=== PATIENT | male | born 1975 | race Caucasian/White ===

== ENCOUNTER → 2020-10-23 | Outpatient (CLI) | payer OTHER ==
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
== END ==
LOC: RAD 08:10
PROVIDERS: ATTEND Physician Assistant
DX: M25.512 Pain in left shoulder (principal)
CPT/HCPCS: 73030

== ENCOUNTER 2020-12-05 08:53 | Emergency (ER) | payer OTHER ==
[~2020-12-05] VITALS: Ht 180.3 cm; Wt 111.0 kg
[2020-12-05] MEDS ORDERED: OFLO5DRO7 AS (10:09)
--- NOTE | 2020-12-05 10:10 | PHYS DOC ---
Past History Past Surgical History: No Surgical History Alcohol Use: None Adult General Chief Complaint Chief Complaint: EARACHE/EAR PAIN HPI HPI Patient is a 45-year-old male presenting for left ear problems. Reports symptom onset was 4 days prior without any known inciting event, trauma, ingestion or major change in health. Admits he is an insulin-dependent type 2 diabetic, has history of otitis externa in the past without any concerning complications and always responded to antibiotic drops. Presents today concerned he has repeat infection. Reports getting out of the shower without any recent swimming activities or other exposures reporting dull left ear aching with pain manipulating external portion of ear. Has had waxing and waning green/yellow drainage from ear canal ever since symptom onset. He has tried Debrox and other wax/ear medications [id number] without any relief in symptoms prompting him to come in for evaluation today Review of Systems Review of Systems Fourteen body systems of review of systems have been reviewed. See HPI for pertinent positives and negative responses, other gregorio all other systems are negative, non-pertinent or non-contributory Allergies Allergies Allergies Coded Allergies Type Severity Reaction Last Updated Verified No Known Drug Allergies 12/05/20 No Physical Exam Physical Exam Constitutional: Well developed, well nourished, no acute distress, non-toxic appearance. HENT: Normocephalic, atraumatic, right ear normal, left external ear painful with manipulation with drainage present on inside of ear canal with TM intact, oropharynx moist, no oral exudates, nose normal. No jaw and/or pre- /postauricular crepitus, pain or other concerning findings based on visual and/or palpation Eyes: PERRLA, EOMI, conjunctiva normal, no discharge. Neck: Normal range of motion, no tenderness, supple, no stridor. Cardiovascular: Heart rate regular per monitor Lungs & Thorax: No respiratory distress or accessory muscle use, bilateral chest rise Abdomen: Abdomen soft, non-tender, bowel sounds present in all quadrants, no guarding or rebound, nonacute abdomen. Skin: Warm, dry, no erythema, no rash. Back: No tenderness, no CVA tenderness. Extremities: No tenderness, no cyanosis, no clubbing, ROM intact, no edema. Neurologic: Alert and oriented X 3, grossly normal motor & sensory function, no focal deficits noted. Psychologic: Affect normal, judgement normal, mood normal. Current Patient Data Vital Signs Vital Signs Date Time Temp Pulse Resp B/P (MAP) Pulse Ox O2 Delivery O2 Flow Rate FiO2 12/05/20 09:00 97.7 54 18 139/82 99 Room Air EKG EKG [] Radiology/Procedures Radiology/Procedures [] Heart Score C/O Chest Pain: No Risk Factors: Risk Factors: DM, Current or recent (<one month) smoker, HTN, HLP, family history of CAD, obesity. Risk Scores: Risk Factors: DM, Current or recent (<one month) smoker, HTN, HLP, family history of CAD, obesity. Course & Med Decision Making Course & Med Decision Making ABCs unremarkable. I disclosed entirety of ER findings and discussed most likely diagnosis of left otitis externa. TM intact, I discussed need for antibiotic drops. I stressed need for close outpatient follow-up to review today's ER vis it. Strict return precautions were also discussed at length with good understanding by patient. Patient voiced understanding and agreement with the plan. Patient knows to come back for repeat evaluation if concerning signs or symptoms present prior to outpatient follow-up. Hemodynamically stable, ambulatory and well-appearing at time of disposition. Dragon Disclaimer Dragon Disclaimer This electronic medical record was generated, in whole or in part, using a voice recognition dictation system. Departure Departure: Impression: Primary Impression: Otitis externa of left ear Disposition: HOME / SELF CARE / HOMELESS Condition: STABLE Referrals: CHRISTINA MCNAIR (PCP) Patient Instructions: Otitis Externa Additional Instructions: You were evaluated in the [facility] emergency Department today for ear pain. Your physical exam suggests that you have an ear infection. Please take the antibiotics in full as directed. Please use ear marah at night for the first three nights. It really helps with comfort and making sure the ear canal stays exposed to the antibiotic for a long time. Be aware it takes 24-36 hours to start feeling better, and often takes a week to clear up. Please follow up with your primary care physician as needed. If you do not have a primary doctor, you can call your insurance company to find one. If you do not have insurance, you can go to the finance/registration department for more assistance. Scripts Ofloxacin (OFLOXACIN) 5 Ml Drops 5 DROP BID for otitis externa for 7 Days, #10 ML 0 Refills Prov: KHALIDA TRIVEDI DO 12/05/20 KHALIDA TRIVEDI DO Dec 05, 2020 10:10
[2020-12-05 10:15] VITALS: BP 130/73
== END 2020-12-05 10:15 | disposition home or self-care (01) ==
LOC: ER 08:53
DX: H60.92 Unspecified otitis externa, left ear (principal)
CPT/HCPCS: 99283

== ENCOUNTER 2021-01-20 13:57 | Emergency (ER) | payer OTHER ==
[~2021-01-20] VITALS: Ht 180.3 cm; Wt 111.0 kg
[2021-01-20 13:57] VITALS: BP 146/83
[~2021-01-20 13:57] MED LIST: OFLO5DRO7 AS
--- NOTE | 2021-01-20 14:24 | PHYS DOC ---
Past History Past Surgical History: No Surgical History Alcohol Use: None Adult General Chief Complaint Chief Complaint: UPPER EXTREMITY SWELLING HPI HPI Patient is a 45-year-old male presenting from local [facility] for left upper extremity abnormality. Reports he got into poison oak and had associated skin breakout approximately 48 hours afterwards. He has been dealing with this rash for the last 24 hours. He has been using calamine lotion and started using topical steroid cream left over from prior exposure today. Patient reports improvement in skin but does admit generalized edema present to left forearm and elbow which concerned him. Denies any pain, changes in motor or sensory or neuro function. No fever, IV drug use or other concerning exposures Review of Systems Review of Systems Fourteen body systems of review of systems have been reviewed. See HPI for pertinent positives and negative responses, other gregorio all other systems are negative, non-pertinent or non-contributory Allergies Allergies Allergies Coded Allergies Type Severity Reaction Last Updated Verified No Known Drug Allergies 12/05/20 No Physical Exam Physical Exam Constitutional: Well developed, well nourished, no acute distress, non-toxic appearance. HENT: Normocephalic, atraumatic, bilateral external ears normal, oropharynx moist, no oral exudates, nose normal. Eyes: PERRLA, EOMI, conjunctiva normal, no discharge. Neck: Normal range of motion, no tenderness, supple, no stridor. Cardiovascular: Heart rate regular, sinus rhythm, no murmurs rubs or gallops Lungs & Thorax: Bilateral breath sounds clear to auscultation Abdomen: Bowel sounds normal, soft, no tenderness, no masses, no pulsatile masses. Nonsurgical abdomen, no peritoneal signs Skin: Warm, dry, patient does have rash consistent with recent poison oak exposure to left upper extremity involving hand, left forearm and left elbow with associated trace edema focal to elbow and forearm area without concern for compartment syndrome. No erythema Back: No tenderness, no CVA tenderness. Extremities: No tenderness, no cyanosis, no clubbing, ROM intact Neurologic: Alert and oriented X 3, grossly normal motor & sensory function, no focal deficits noted. Psychologic: Affect normal, judgement normal, mood normal. Current Patient Data Vital Signs Vital Signs Date Time Temp Pulse Resp B/P (MAP) Pulse Ox O2 Delivery O2 Flow Rate FiO2 01/20/21 13:57 97.5 63 16 146/83 99 Room Air EKG EKG [] Radiology/Procedures Radiology/Procedures [] Heart Score C/O Chest Pain: No Risk Factors: Risk Factors: DM, Current or recent (<one month) smoker, HTN, HLP, family history of CAD, obesity. Risk Scores: Risk Factors: DM, Current or recent (<one month) smoker, HTN, HLP, family history of CAD, obesity. Course & Med Decision Making Course & Med Decision Making ABCs unremarkable. I disclosed entirety of ER findings and discussed most likely diagnosis of trace edema in setting of recent poison oak exposure. I disclose this is likely natural course of recovery; however, other diagnoses were discussed with patient such as development of compartment syndrome, septic joint, potentially symptomatic joint effusion etc. but deemed less likely causes of patient's presentation. Plan of care discussed at length with need for close outpatient follow-up to review today's ER visit stressed. Strict return precautions were also discussed at length with good understanding by patient. Patient voiced understanding and agreement with the plan. Patient knows to come back for repeat evaluation if concerning signs or symptoms present prior to outp atient follow-up. Hemodynamically stable, ambulatory and well-appearing at time of disposition. Dragon Disclaimer Dragon Disclaimer This electronic medical record was generated, in whole or in part, using a voice recognition dictation system. Departure Departure: Impression: Primary Impression: Swelling of left upper extremity Additional Impression: Poison cora dermatitis Disposition: HOME / SELF CARE / HOMELESS Condition: STABLE Referrals: CHRISTINA MCNAIR (PCP) Patient Instructions: Peripheral Edema, Poison Cora Additional Instructions: As discussed prior to ER departure, your vital signs, history and physical examination were nonconcerning for any emergent or surgical issues. You are likely suffering from sequelae of poison cora contact but other diagnoses such as joint effusion versus other more concerning pathology such as septic joint are not totally excluded. Joint decision made to discharge home with continued supportive care practices that should include soothing lotions, good skin hygiene, as needed topical steroid creams, Mikey bandages and keeping arm elevated above heart. Strict return precautions were discussed, if you experience any concerning signs or symptoms prior to outpatient follow-up please do not hesitate to come back for repeat evaluation. It was a pleasure to take care of you and I wish you the best going forward Problem Qualifiers KHALIDA TRIVEDI DO Jan 20, 2021 14:24
== END 2021-01-20 14:56 | disposition home or self-care (01) ==
LOC: ER 13:57
DX: L23.7 Allergic contact dermatitis due to plants, except food (principal)
CPT/HCPCS: 99282